=== PATIENT | male | born 1950 | race Caucasian/White ===

== ENCOUNTER → 2019-02-18 | Outpatient (CLI) | payer OTHER ==
[~2019-02-18] MED LIST: ALTACE5 MG PO; ASPIR 8181 MG PO; CELEXA20 MG PO; CENTRUM SILVER1 EAC2 PO; FISH OIL 1,001000 M2 PO; HYDROCODONE-AP1 EAC6 PO; TENORMIN25 MG PO; VITAMIN D1000 UNI1 PO; ZOCOR20 MG PO
[2019-02-18 09:56] LABS: CREATININE 0.7 mg/dL (0.7-1.3)
== END ==
LOC: CAT 09:22
PROVIDERS: Internal Medicine Cardiovascular Disease
DX: I71.4 Abdominal aortic aneurysm, without rupture (principal); I25.10 Atherosclerotic heart disease of native coronary artery without angina pectoris; I10 Essential (primary) hypertension; M51.36 Other intervertebral disc degeneration, lumbar region; M41.86 Other forms of scoliosis, lumbar region; N40.0 Benign prostatic hyperplasia without lower urinary tract symptoms; Z88.2 Allergy status to sulfonamides

== ENCOUNTER → 2019-11-23 | Outpatient (CLI) | payer OTHER | LOC: SJCVC 13:24 | PROVIDERS: ATTEND Internal Medicine Cardiovascular Disease | DX: Z45.018 Encounter for adjustment and management of other part of cardiac pacemaker (principal); I49.5 Sick sinus syndrome; I25.10 Atherosclerotic heart disease of native coronary artery without angina pectoris; I71.4 Abdominal aortic aneurysm, without rupture; I10 Essential (primary) hypertension; E78.00 Pure hypercholesterolemia, unspecified; Z95.828 Presence of other vascular implants and grafts; Z82.49 Family history of ischemic heart disease and other diseases of the circulatory system; F17.210 Nicotine dependence, cigarettes, uncomplicated; Z79.82 Long term (current) use of aspirin; Z79.899 Other long term (current) drug therapy ==

== ENCOUNTER → 2019-12-25 | Outpatient (CLI) | payer OTHER | LOC: SJCVCIMAG 07:40 | PROVIDERS: ATTEND Internal Medicine Cardiovascular Disease | DX: I08.3 Combined rheumatic disorders of mitral, aortic and tricuspid valves (principal); I49.3 Ventricular premature depolarization; I25.10 Atherosclerotic heart disease of native coronary artery without angina pectoris; F17.210 Nicotine dependence, cigarettes, uncomplicated; Z95.0 Presence of cardiac pacemaker; Z79.899 Other long term (current) drug therapy ==

== ENCOUNTER → 2020-08-22 | Outpatient (CLI) | payer OTHER | LOC: SJCVC 09:43 → SJCVCIMAG 09:43 | PROVIDERS: ATTEND Internal Medicine Cardiovascular Disease | DX: R94.31 Abnormal electrocardiogram [ECG] [EKG] (principal); I45.10 Unspecified right bundle-branch block; I71.4 Abdominal aortic aneurysm, without rupture; I49.5 Sick sinus syndrome; I72.8 Aneurysm of other specified arteries; I25.10 Atherosclerotic heart disease of native coronary artery without angina pectoris; I10 Essential (primary) hypertension; E78.00 Pure hypercholesterolemia, unspecified; I48.0 Paroxysmal atrial fibrillation; F17.210 Nicotine dependence, cigarettes, uncomplicated; Z95.0 Presence of cardiac pacemaker; Z98.890 Other specified postprocedural states; Z95.828 Presence of other vascular implants and grafts; Z88.2 Allergy status to sulfonamides; Z79.82 Long term (current) use of aspirin; Z79.899 Other long term (current) drug therapy; Z82.49 Family history of ischemic heart disease and other diseases of the circulatory system ==

== ENCOUNTER → 2020-11-23 | Outpatient (CLI) | payer OTHER | LOC: SJCVC 12:38 | PROVIDERS: ATTEND Internal Medicine Cardiovascular Disease | DX: I25.10 Atherosclerotic heart disease of native coronary artery without angina pectoris (principal); I49.5 Sick sinus syndrome; I71.4 Abdominal aortic aneurysm, without rupture; E78.00 Pure hypercholesterolemia, unspecified; I10 Essential (primary) hypertension; I42.9 Cardiomyopathy, unspecified; F17.210 Nicotine dependence, cigarettes, uncomplicated; Z95.0 Presence of cardiac pacemaker; Z95.828 Presence of other vascular implants and grafts; Z88.2 Allergy status to sulfonamides; Z79.82 Long term (current) use of aspirin; Z79.899 Other long term (current) drug therapy; Z82.49 Family history of ischemic heart disease and other diseases of the circulatory system ==

== ENCOUNTER → 2021-03-13 | Outpatient (CLI) | payer OTHER | LOC: SJCVCIMAG 08:50 | PROVIDERS: ATTEND Internal Medicine Cardiovascular Disease | DX: I08.2 Rheumatic disorders of both aortic and tricuspid valves (principal); I25.10 Atherosclerotic heart disease of native coronary artery without angina pectoris; E78.00 Pure hypercholesterolemia, unspecified; I49.5 Sick sinus syndrome; I71.4 Abdominal aortic aneurysm, without rupture; I48.0 Paroxysmal atrial fibrillation; M19.90 Unspecified osteoarthritis, unspecified site; F17.200 Nicotine dependence, unspecified, uncomplicated; Z95.0 Presence of cardiac pacemaker; Z95.828 Presence of other vascular implants and grafts; Z79.82 Long term (current) use of aspirin; Z79.899 Other long term (current) drug therapy; Z88.2 Allergy status to sulfonamides ==

== ENCOUNTER → 2021-03-22 | Outpatient (CLI) | payer OTHER ==
[~2021-03-22] VITALS: Ht 185.4 cm; Wt 97.5 kg
[~2021-03-22] MED LIST changes: +PERCOCET 7.5-31 EAC1 PO; +TOPROL XL25 MG PO
[2021-03-22 10:03] VITALS: BP 146/81
[2021-03-22 10:17] LABS: CREATININE 0.7 mg/dL (0.7-1.3); POTASSIUM 4.2 mmol/L (3.5-5.1)
[2021-03-22 10:19] LABS: HEMATOCRIT 47.5 % (42.0-52.0); HEMOGLOBIN 16.5 gm/dL (14.0-18.0); MCH 31.9 pg (26.0-34.0); MCHC 34.6 g/dL (28.0-37.0); MCV 92.1 fL (80.0-100.0); RBC 5.16 mil/uL (4.50-6.00); RDW 13.2 % (10.5-14.5); WBC 6.6 thou/uL (4.0-11.0)
--- NOTE | 2021-04-04 10:08 | CATHLAB ---
[facility] [address] [place] [address] INVASIVE PROCEDURE REPORT Name: ADRIAN REINA Room #: REG NADIA [facility]#: [id number] Admission: 03/22/21 Attend Phys: Tu Plascencia Discharge: Date of : 48 Report #: [id number] THIS REPORT FOR: cc: Rodney Carrion MD, Russell Richard MD Lammoglia, Francisco J. MD ~ APPROVED REPORT Study performed: 03/22/2021 11:24:46 Patient Status: Out-Patient Room #: Event Personnel: Tu Plascencia Hand Spray Operator, Tiffany Reed RN RN, Maria Del Carmen Fuller RTR Scrub, Zoila Atkins RTR Monitor Exam: Generator Change for a Dual Chamber Permanent Pacemaker Indications: Sick Sinus Syndrome/Tachy Luis Syndrome The patient is a 70 year-old male with a history of Tachybradycardia syndrome who is at end-of-life. Conscious Sedation Start time: 12:08 End Time: 12:50 Versed 3 mg Implanted Devices: [employer] generator Model #Assurity MRI 2272 Serial #[id number] Implant Date: 03/22/2021 Explanted Devices: [employer] generator Model# [employer]ent DR RF 2210 Serial #[id number] Implant Date: 04/30/2011 Explant Date: 03/22/2021 Procedure The patient underwent informed consent. We discussed the details of the procedure including the risks, which include, but not limited to bleeding, infection, vascular damage, cardiac perforation, and pneumothorax. He understood these risks and was willing to proceed. As such, he was brought to the EP/Cardiac Catheterization laboratory in a fasting and sedated state and prepped and draped in a The patient underwent conscious sedation, with no related complications. The patient was brought to the EP/Cardiac Catheterization laboratory and the left chest and shoulder were prepped and draped in a sterile manner. [facility] [place] [address] INVASIVE PROCEDURE REPORT Name: ADRIAN REINA Room #: REG [facility]#: [id number] Admission: 03/22/21 Attend Phys: Tu Charles Discharge: Date of : 48 Report #: [id number] IV conscious sedation was used throughout procedure with appropriate monitoring and was performed in the presence of a registered nurse who was an independent trained observer other than the physician performing the procedure. Electrode Parameters P Wave: 1.6mV R Wave: 3.1mV Atrial Threshold: 0.75V @ 0.5ms Ventricular Threshold: 0.75V @ 0.5ms Atrial Resistance: 490ohms Ventricular Resistance: 580ohms The lead and pulse generator were placed into the subcutaneous pocket. Sharp and sponge counts were confirmed to be correct. At this time the pocket was closed subcutaneously with a 2.0 Ethibond in a running locking stitch and the skin was closed with a 3.0 Vicryl subcuticular stitch. The operative site was dressed in sterile fashion with Steri-Strips, 4 x 4 OpSite and the patient was transferred to the floor in stable condition. Complications The patient tolerated the procedure well and there were no complications associated with the procedure. Findings Estimated Blood Loss: 5 cc Conclusion 1. Successful dual-chamber pacemaker generator change Recommendations 1. Routine post generator change protocol <ELECTRONICALLY SIGNED> By: Tu Plascencia MD 04/04/218 07 07 Tu Plascencia MD /INF
== END | disposition home or self-care (01) ==
LOC: CATH 08:20
PROVIDERS: ATTEND Internal Medicine
DX: Z45.010 Encounter for checking and testing of cardiac pacemaker pulse generator [battery] (principal); I49.5 Sick sinus syndrome; I48.91 Unspecified atrial fibrillation; I49.9 Cardiac arrhythmia, unspecified; I10 Essential (primary) hypertension; E78.00 Pure hypercholesterolemia, unspecified; F32.9 Major depressive disorder, single episode, unspecified; F17.210 Nicotine dependence, cigarettes, uncomplicated; Z98.890 Other specified postprocedural states; Z79.899 Other long term (current) drug therapy; Z79.01 Long term (current) use of anticoagulants; Z88.2 Allergy status to sulfonamides